=== PATIENT | female | born 1965 ===

== ENCOUNTER 2019-12-02 00:17 | Emergency (ER) | payer OTHER ==
[2019-12-02 00:24] VITALS: BP 109/75; PULSE 75; TEMP 97.9; BMI 17.2
[2019-12-02] MEDS ORDERED: DIPHTH,PERTUSS(ACELL),TET 0.5 ML DISP.SYRIN IM ONE ×2 (00:24→00:35)
--- NOTE | 2019-12-02 00:29 | PDOC ---
History of Present Illness - General Chief Complaint: Laceration Stated Complaint: CUT LEFT INDEX FINGER WITH KNIFE Time Seen by Provider: 12/02/19 00:24 History Source: Patient Exam Limitations: No Limitations - History of Present Illness Initial Comments: 12/02/19 00:25 HPI 54 Year old RH dominant Female with no sig medical history presenting with left index finger laceration s/p cutting with knife while chopping vegetables and slipped this afternoon. no f/c, no discharge, paresthesias or weakness. able to move finger last tetanus known. 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 Review of Systems Constitutional: no fevers or chills. MUSCULOSKELETAL: No joint pain and swelling. No muscle pain/arthralgias. + finger pain Back: no back pain SKIN: no redness or skin changes, no discharge, no rash. +wound, +laceration. + bleeding Hematologic: +bleeding to finger NEUROLOGIC: No weakness, numbness or tingling. Allergic/Immunologic: no allergies All other systems reviewed and negative, or as documented in HPI. Physical exam General: NAD, well appearing, mildly anxious Vascular: 2+ radialis pulses symmetric and equal. 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 sensation grossly intact in median/radial/ ulnar distribution. MSK: soft compartments, Cap refill <2 sec. 2+ radialis pulses bilaterally and symmetric. FDP/FDS intact. no joint tenderness. FROM. Skin: color normal color, warm and well perfused. Curvilinear Laceration to left index fingertip on distal digital pulp, 1.5 cm mild bleeding, tender to palp 12/02/19 01:11 12/02/19 01:12 Past History - Past Medical History Allergies/Adverse Reactions: Allergies Allergy/AdvReac Type Severity Reaction Status Date / Time No Known Allergies Allergy Verified 12/02/19 00:18 Home Medications: Ambulatory Orders NK [No Known Home Medication] 07/21/15 Anemia: Yes COPD: No - Psycho Social/Smoking Cessation Hx Smoking History: Never smoked Have you smoked in the past 12 months: No Information on smoking cessation initiated: No Hx Alcohol Use: Yes Drug/Substance Use Hx: No Substance Use Type: None *Physical Exam - Vital Signs Last Vital Signs Temp Pulse Resp BP Pulse Ox 97.9 F 75 16 109/75 95 12/02/19 00:19 12/02/19 00:19 12/02/19 00:19 12/02/19 00:19 12/02/19 00:19 Procedures - Laceration/Wound Repair Left Volar Finger 2nd digit Wound Length: to 2.5 cm Wound Explored: clean Wound's Depth, Shape: superficial Irrigated w/ Saline: Yes Anesthesia: 1% Lidocaine Amount of Anesthetic (ccs): 3 Wound Debrided: minimal Wound Repaired With: Sutures Suture Size/Type: 5:0, nylon Number of Sutures: 4 Layer Closure: No Sterile Dressing Applied: Yes Splint Applied: No Progress: 12/02/19 01:09 Laceration repair procedure: Area prepped and draped in sterile fashion. Anesthetized with lidocaine. Irrigated with copious irrigation and explored for foreign body. Sutured with 5- 0 nylon x4 sutures with adequate approximation of wound edges. The wound was then covered with bacitracin and sterile gauze. Instructions given to return in 10-14 days for suture removal in the ED or with their primary care doctor. Medical Decision Making - Medical Decision Making 12/02/19 00:28 Vital Signs Temp Pulse Resp BP Pulse Ox 97.9 F 75 16 109/75 95 12/02/19 00:19 12/02/19 00:19 12/02/19 00:19 12/02/19 00:19 12/02/19 00:19 tetanus updated declines analgesia. no tendon involvement, joint intact FROM finger block with lidocaine 1% no epi neurovasc intact, 1cm laceration/avulsion of superficial skin to left index finger copious irrigation with saline see procedure note 5-0 nylon with [address], return in 10-14 days for suture removal, wound care instructions discussed DC stable condition, return precautions for s/s infection, pt and family verbalized understanding of impression and plan. 12/02/19 00:28 12/02/19 01:08 12/02/19 01:11 12/02/19 01:12 Discharge - Discharge Information Problems reviewed: Yes Clinical Impression/Diagnosis: Laceration of left index finger Qualifiers: Encounter type: initial encounter Damage to nail status: without damage Foreign body presence: unspecified Qualified Code(s): S61.211A - Laceration without foreign body of left index finger without damage to nail, initial encounter Condition: Stable Disposition: HOME - Admission No - Follow up/Referral - Patient Discharge Instructions Patient Printed Discharge Instructions: DI for Laceration Repair, Skin Wound Additional Instructions: Wound dressed with topical Bacitracin and sterile gauze. Follow up with your primary care doctor within 48-72 hours for a wound check if needed. Keep sutures covered and dry for 24 hours then clean with soap and water daily - do not scrub. Apply bacitracin or neosporin twice a day with warm soaks and cover with gauze/dressings. Return to ED for suture removal 10-14 days. Return to the ED for any worsening pain, redness, streaking (red lines), swelling, fever or chills. Keep the wound clean and as dry as possible. Do not immerse or soak the wound in water. This means no swimming, washing dishes (unless thick rubber gloves are used), baths, or hot tubs until the stitches are removed or after about two weeks if absorbable suture material was used. Leave original bandages on the wound for the first 24 hours. After this time, showering or rinsing is recommended, rather than bathing. the first day, remove old bandages and gently cleanse the wound with soap and water. Cleansing twice a day prevents buildup of debris and will result in easier suture removal. - Post Discharge Activity
== END 2019-12-02 01:12 | disposition home or self-care (01) ==
LOC: FER 00:17
PROC: 0HQGXZZ Repair Left Hand Skin, External Approach (ICD-10-PCS; principal; 2019-12-02)
PROC: 3E0234Z Introduction of Serum, Toxoid and Vaccine into Muscle, Percutaneous Approach (ICD-10-PCS; 2019-12-02)
DX: S61.211A Laceration without foreign body of left index finger without damage to nail, initial encounter (principal); W26.0XXA Contact with knife, initial encounter; Y93.G1 Activity, food preparation and clean up; Y92.89 Other specified places as the place of occurrence of the external cause
CPT/HCPCS: 12001-25; 90471; 90715; 99281-25